=== PATIENT | female | born 1965 | race Caucasian/White ===

== ENCOUNTER 2024-06-28 17:25 | Emergency (ER) | payer OTHER ==
[2024-06-28 17:41] VITALS: BP 145/93; O2SAT 99
--- NOTE | 2024-06-28 18:18 | ED Physician Documentation ---
History of Present Illness - Stated complaint Stated Complaint: L EYE PX - Chief complaint Chief Complaint: Heent - Additonal information Additional information: 58-year-old female presents emergency department for left eye irritation. Patinory nt says that she got eyelash extensions about 3 weeks ago and woke with bilateral eye swelling she had eyelashes removed she was prescribed antibiotic drops as well as steroid drops and did feel like she was having significant improvement of symptoms and almost entirely back to normal but yesterday started noticing some left eyelid irritation again. No vision changes no purulent drainage. PD PAST MEDICAL HISTORY - Past Medical History Past Medical History: Yes Cardiovascular: High cholesterol Respiratory: None Neuro: None Endocrine/Autoimmune: HyPOthyroidism GI: Other POLYMERIZATION OVEN TENDER: None : None HEENT: None Psych: Depression Musculoskeletal: None Derm: None Other Past Medical History: IBS - Past Surgical History Past Surgical History: Yes General: Cholecystectomy, Appendectomy, Hiatal hernia repair /POLYMERIZATION OVEN TENDER: Hysterectomy, Other HEENT: Tonsil/Adenoidectomy, Other - Present Medications Home Medications: Ambulatory Orders Medication Instructions Recorded Confirmed predniSONE [Deltasone] 40 mg PO DAILY 4 Days #8 tablet 06/28/24 - Allergies Allergies/Adverse Reactions: Allergies Allergy/AdvReac Type Severity Reaction Status Date / Time adhesive tape Allergy Rash Verified 06/28/24 17:34 Sulfa (Sulfonamide Allergy Hives Verified 06/28/24 17:34 Antibiotics) codeine AdvReac Nausea Verified 06/28/24 17:34 - Social History Does the pt smoke?: Yes Smoking Status: Current some day smoker Does the pt drink ETOH?: Yes Does the pt have substance abuse?: No - Immunizations Immunizations are current?: Yes PD ED PE NORMAL - Vitals Vital signs reviewed: Yes - General General: Alert and oriented X 3, No acute distress, Well developed/nourished - HEENT HEENT: PERRL, Other (Left superior eyelid inflammation no drainage EXTR ocular movement intact sclera white, no injection) Results - Vitals Vitals: Vital Signs - 24 hr 06/28/24 06/28/24 17:36 19:07 Temperature 36.3 C L Heart Rate 99 Respiratory 16 16 Rate Blood Pressure 145/93 H O2 Saturation 99 Oxygen O2 Source Room air PD Medical Decision Making - ED course ED course: [58]-year-old patient presenting with left swollen eyelid. Otherwise well- appearing.No history of trauma. No urticarial rash to suggest allergic reaction. No airway swelling, wheezing, vomiting/diarrhea, or tachycardia/hypotension to suggest anaphylaxis. No proptosis, vision change, or pain with EOM to suggest orbital cellulitis. Ddx includes allergic reaction Worse blepharitis. She is given a systemic dose of steroids here in the emergency department to steroid prescription was sent to her preferred pharmacy. Patient was told that she has a follow-up with ophthalmology tomorrow for further evaluation as to why this is becoming a recurrent problem. Sclera is not injected to be concern for possible conjunctivitis I did not want a prescribe steroid eyedrops as patient was just recently on them and I wanted her to have this evaluated by an physical medicine physician. [place] sometimes they are able to get her in for same-day visits. Return precautions given all questions answered and prescription of scared was sent to her preferred pharmacy. Departure - Departure Disposition: 01 Home, Self Care Clinical Impression: Blepharitis Instructions: Blepharitis, Blepharitis Tx Self Care Prescriptions: predniSONE [Deltasone] 40 mg PO DAILY 4 Days #8 tablet Comments: Thank you for trusting us with your care. It appears that you have some ongoing left upper eyelid irritation also known as blepharitis. I want you to follow- up with ophthalmology tomorrow you can call [facility] [place] and often times they are able to get you in for same-day appointments. I have sent a prescription to [facility] for steroids please do not take this if the physical medicine physician is not recommending to continue these. Do cool compresses to left eye to help with inflammation and swelling. The contact information for [facility] is [phone] Forms: PCP List Discharge Date/Time: 06/28/24 19:08
[2024-06-28] MEDS: predniSONE 20 MG TABLET PO STA (18:42)
== END 2024-06-28 19:08 | disposition home or self-care (01) ==
LOC: ED 17:25
DX: H01.004 Unspecified blepharitis left upper eyelid (principal); F17.210 Nicotine dependence, cigarettes, uncomplicated; E03.9 Hypothyroidism, unspecified; E78.00 Pure hypercholesterolemia, unspecified
CPT/HCPCS: 99283; J7512